=== PATIENT | male | born 1955 | race Caucasian/White ===

== ENCOUNTER 2023-04-09 10:45 | Outpatient (CLI) | payer MEDICARE, BC ==
[2023-04-09 18:03] LABS: BASOPHILS # (AUTO) 0.1 10^3/uL (0.0-0.1); BASOPHILS % (AUTO) 0.6 %; EOSINOPHILS # (AUTO) 0.2 10^3/uL (0.0-0.7); EOSINOPHILS % (AUTO) 1.8 %; HCT - HEMATOCRIT 44.7 % (42.0-52.0); LYMPHOCYTES # (AUTO) 1.8 10^3/uL (1.5-3.5); LYMPHOCYTES % (AUTO) 20.1 %; MEAN CORPUSCULAR HEMOGLOBIN 28.4 pg (27.0-31.0); MEAN CORPUSCULAR HGB CONC 31.3 g/dL (32.0-36.0); MEAN CORPUSCULAR VOLUME 90.7 fL (80.0-94.0); MEAN PLATELET VOLUME 10.1 fL (7.4-11.4); MONOCYTES # (AUTO) 0.9 10^3/uL (0.0-1.0); MONOCYTES % (AUTO) 9.9 %; NEUTROPHILS # (AUTO) 5.8 10^3/uL (1.5-6.6); NEUTROPHILS % (AUTO) 66.8 %; PLT - PLATELET COUNT 269 10^3/uL (130-450); RED BLOOD COUNT 4.93 10^6/uL (4.70-6.10); RED CELL DISTRIBUTION WIDTH 13.8 % (12.0-15.0); WHITE BLOOD COUNT 8.7 x10^3/uL (4.8-10.8)
[2023-04-09 18:31] LABS: BILIRUBIN,URINE NEGATIVE (NEGATIVE); GLUCOSE, URINE (UA) NEGATIVE (NEGATIVE); KETONES,URINE (UA) NEGATIVE (NEGATIVE); LEUKOCYTE ESTERASE, URINE NEGATIVE (NEGATIVE); NITRITE,URINE NEGATIVE (NEGATIVE); OCCULT BLOOD,URINE NEGATIVE (NEGATIVE); PH,URINE 6.5 PH (5.0-7.5); PROTEIN,URINE NEGATIVE (NEGATIVE); UROBILINOGEN,URINE 0.2 (NORMAL) E.U./dL (NORMAL)
[2023-04-09 18:32] LABS: ALBUMIN 4.7 g/dL (3.2-5.5); ALBUMIN/GLOBULIN RATIO 1.7 (1.0-2.2); BILIRUBIN,TOTAL 0.5 mg/dL (0.2-1.0); CALCIUM 9.6 mg/dL (8.5-10.3); CREATININE 0.9 mg/dL (0.6-1.3); POTASSIUM 4.2 mmol/L (3.5-4.5); TOTAL PROTEIN 7.5 g/dL (6.4-8.9)
[2023-04-09 18:43] LABS: THYROID STIMULATING HORMONE 4.8 uIU/mL (0.34-5.60)
[2023-04-09 19:04] LABS: CLARITY,URINE CLEAR (CLEAR)
[2023-04-09 19:05] LABS: BACTERIA,URINE None Seen /HPF (None Seen); RBC,URINE None Seen /HPF (0-5); SQUAMOUS EPITHELIAL CELL,UR NONE SEEN (<= Few); WBC,URINE 0-3 /HPF (0-3)
== END 2023-04-09 11:00 | disposition home or self-care (01) ==
LOC: LAB.N 10:45
PROVIDERS: ATTEND Family Medicine
DX: R60.9 Edema, unspecified (principal); R06.09 Other forms of dyspnea
CPT/HCPCS: 36415; 80053; 81001; 83880; 84443; 85025; 87086

== ENCOUNTER 2023-07-16 06:19 | Day surgery (SDC) | payer MEDICARE, OTHER ==
[2023-07-16] MEDS ORDERED: LACTATED RINGERS 1,000 ML IV ONE ×3 (06:31→07:52)
[2023-07-16 06:45] VITALS: O2SAT 98
[2023-07-16] MEDS ORDERED: PROPOFOL 500 MG/50 ML 500 MG/50 ML VIAL ONE (07:03)
[2023-07-16] MEDS ORDERED: MIDAZOLAM 2 MG/2 ML VIAL ONE (07:06)
--- NOTE | 2023-07-16 07:20 | ANESTHESIA ---
Pre-Anesthesia VS, & Labs - Diagnosis colonoscopy - Procedure colonoscopy Vital Signs: Temp Pulse Resp BP Pulse Ox O2 Flow Rate 36.5 C 85 19 157/92 H 98 07/16/23 06:40 07/16/23 06:40 07/16/23 06:40 07/16/23 06:40 07/16/23 06:40 Height: 6 ft 2 in Weight (kg): 118.6 kg Body Mass Index: 33.5 BMI Classification: Obese - NPO Other (0430 clear liquids) Home Medications and Allergies Home Medications: Ambulatory Orders Irbesartan [Avapro] 2 tab PO DAILY 07/16/23 Levothyroxine Sodium [Euthyrox] 1 tab PO DAILY 07/16/23 Rosuvastatin Calcium [Crestor] 10 mg PO DAILY 07/16/23 amLODIPine [Norvasc] 1 tab PO DAILY 07/16/23 Irbesartan [Avapro] 2 tab PO DAILY 07/16/23 Levothyroxine Sodium [Euthyrox] 1 tab PO DAILY 07/16/23 Rosuvastatin Calcium [Crestor] 10 mg PO DAILY 07/16/23 amLODIPine [Norvasc] 1 tab PO DAILY 07/16/23 Allergies/Adverse Reactions: Allergies Allergy/AdvReac Type Severity Reaction Status Date / Time No Known Drug Allergies Allergy Verified 07/13/23 12:30 Anes History & Medical History - Anesthetic History Anesthesia Complications: reports: No previous complications Family history of Anesthesia Complications: Denies Family history of Malignant Hyperthermia: Denies - Medical History Cardiovascular: reports: Hypertension, High cholesterol Pulmonary: reports: None Gastrointestinal: reports: Colon polyps Urinary: reports: None Musculoskeletal: reports: None Endocrine/Autoimmune: reports: Other Skin: reports: None Psychosocial: reports: No issues indicated - Surgical History General: reports: Colonoscopy Orthopedic: reports: Other Exam General: Alert, Oriented x3, Cooperative Dental: WNL Mouth Openin Fingerbreadth Neck Mobility: Normal Mallampati classification: II Thyromental Distance: 4-6 cm Respiratory: Lungs clear Cardiovascular: Regular rate Plan Anesthesia Type: General, Total IV Consent for Procedure(s) Verified and Reviewed: Yes Code Status: Attempt Resuscitation ASA classification: 2-Mild systemic disease Is this case an emergency?: No
[2023-07-16] MEDS ORDERED: LIDOCAINE-MPF 2% 5 ML VIAL ONE (07:36)
--- NOTE | 2023-07-16 08:07 | ANESTHESIA POST OP EVALUATION ---
Anesthesia Post Eval - Post Anesthesia Eval Vitals: Last Vital Signs Temp 36.3 C L 07/16/23 07:52 Pulse 79 07/16/23 07:52 Resp 16 07/16/23 07:52 BP 109/66 07/16/23 07:52 Pulse Ox 97 07/16/23 07:52 O2 Flow Rate CV Function Including HR & BP: Stable Pain Control: Satisfactory Nausea & Vomiting: Negative Mental Status: Baseline Respiratory Status: Airway Patent Hydration Status: Satisfactory Anesthesia Complications: None
[2023-07-16 08:11] VITALS: BP 119/82
== END 2023-07-16 06:20 | disposition home or self-care (01) ==
LOC: SDS 06:19
PROVIDERS: ATTEND Surgery
PROC: 0DBM8ZZ Excision of Descending Colon, Via Natural or Artificial Opening Endoscopic (ICD-10-PCS; 2023-07-16)
PROC: 0DBH8ZZ Excision of Cecum, Via Natural or Artificial Opening Endoscopic (ICD-10-PCS; 2023-07-16)
PROC: 0DBK8ZZ Excision of Ascending Colon, Via Natural or Artificial Opening Endoscopic (ICD-10-PCS; principal; 2023-07-16 07:30)
DX: Z12.11 Encounter for screening for malignant neoplasm of colon (principal); D12.0 Benign neoplasm of cecum; D12.2 Benign neoplasm of ascending colon; D12.4 Benign neoplasm of descending colon; E66.9 Obesity, unspecified; I10 Essential (primary) hypertension; Z68.33 Body mass index [BMI] 33.0-33.9, adult
CPT/HCPCS: 45380; J7120

== ENCOUNTER 2023-09-22 09:01 | Outpatient (CLI) | payer MEDICARE, OTHER ==
[~2023-09-22 09:01] MED LIST: GADOTERATE MEGLUMINE 10 MMOL/20 ML VIAL ONE; GADOTERATE MEGLUMINE 5 MMOL/10 ML VIAL ONE
[2023-09-22] MEDS ORDERED: GADOTERATE MEGLUMINE 10 MMOL/20 ML VIAL IVP ONE (10:03)
--- NOTE | 2023-09-24 13:23 | MRI Report ---
PROCEDURE: MRI brain with and without contrast INDICATIONS: FACIAL DROOP TECHNIQUE: Multiplanar multisequential MR images of the brain were obtained before and after intrave nous contrast administration. COMPARISON: None. FINDINGS: CSF spaces: Basal cisterns are patent. No extra-axial fluid collections. Ventricles are normal in size and shape. Brain: No midline shift. No intracranial bleeds or masses. No abnormal intracranial enhancement. The brainstem appears normal. Diffusion-weighted images demonstrate no acute infarct. Normal intrav ascular flow voids are present. Generalized atrophy and multifocal white matter chronic ischemic change. Skull and face: Calvarial marrow is normal in signal. Orbits appear normal. Sinuses: Sinuses and mastoids appear clear. IMPRESSION: Atrophy and chronic ischemic change without acute infarct, hemorrhage or mass lesion Reviewed by: Vito Fan MD on 09/24/2023 12:22 PM [facility] Approved by: Vito Fan MD on 09/24/2023 12:22 PM [facility] Station ID: [id number]
== END 2023-09-22 09:02 | disposition home or self-care (01) ==
LOC: DI 09:01
PROVIDERS: ATTEND Internal Medicine
DX: R29.810 Facial weakness (principal); G31.9 Degenerative disease of nervous system, unspecified; I67.82 Cerebral ischemia
CPT/HCPCS: 70553; A9575

== ENCOUNTER 2024-01-08 10:45 | Outpatient (CLI) | payer MEDICARE, OTHER ==
--- NOTE | 2024-01-08 10:50 | CARDIAC PROCEDURE NOTE ---
Stress Test Report Service Date: 01/08/24 Service Time: 11:00 Ordering Provider: Celine Girard MD Indication for Test: Risk stratification in patient with an elevated coronary risk profile, including PVCs, hyperlipidemia, hypertension and obesity. Significant Medical History: Yonis is referred for an exercise tolerance test today, for risk stratification in the setting of cardiac risk factors and PVCs, per the request of his [facility] [employer]. He has not been aware of palpitations, chest pressure/pain or a decrease in exertional tolerance and he remains active doing cardio as well as weight work at a local gym. He reports "normal" results of a prior stress test (many years ago) and an echocardiogram (in 2022). He has been referred for a sleep study, which he is contemplating, though his does not report heavy snoring or witnessed apneas. He has not had extended ambulatory rhythm monitoring performed as of yet. Cardiac Risk Factors: Positive for history of hypertension and hyperlidemia (both treated for ~20 yrs, with recent on-treatment lipids including TChol 149, LDLc 69, HDLc 50, TG 150), with no history of diabetes, tobacco smoking or significant family history of known CAD. Type of Stress Test: Exercise Treadmill Test (ETT) Procedure: -Exercise Treadmill Test- After signing informed consent, the patient performed treadmill exercise using a [place] protocol. The patient exercised for 5 minutes 49 seconds and achieved a peak heart rate of 160 (106 percent predicted maximum heart rate for age), and an estimated workload of 7.1 METS. The test was terminated due to fatigue/shortness of breath. Resting heart rate: 85 Peak heart rate: 160 Normal response to exercise. Resting BP: 153/86 Peak BP: 248/59 Hypertensive resting BP with hypertensive BP response to exercise. Room air oxygen saturation during exercise ranged between 94-96%. Rhythm during exercise: Sinus rhythm throughout, with PVCs and PVC couplets, increasing in frequency with exercise; for unknown reasons PVCs were not quantitated by the EKG system. Symptoms: No report of any chest pressure/pain/discomfort nor palpitations. EKG at rest showed normal sinus rhythm with mild first-degree AV block (PV=428 ms), low precordial lead voltages with early precordial R/S transition and rSR' pattern in V1 suggesting right ventricular conduction delay. EKG at peak stress showed no ischemia by EKG criteria. In Recovery HR and BP decreased towards resting levels, remaining elevated at 4:41 (HR 119, BP 155/72). No imaging was ordered with this stress test. Donald Tolbert MD, was present throughout this treadmill stress study and supervised it in its entirety. Summary: 1) Exercise tolerance modestly below average for age as evidenced by DALIA of 13%. 2) Abnormal resting EKG, but with ST/T pattern that was interpretable for ischemia. 3) Adequate level of exercise was achieved on this treadmill stress test. 4) Elevated resting BP with hypertensive response to exercise. 5) No ischemic changes by EKG criteria were seen at peak stress. 6) No imaging was ordered with this test. Conclusions and Recommendations: 1) The patient walked to a supraphysiologic heart rate with a hypertensive BP response, with no symptom or EKG evidence of inducible ischemia. He may have b een able to walk further but the study was discontinued at 106% PMHR due to concern for false positive ST response at higher heart rates. 2) He was encouraged to continue working on weight loss through continued dieting and aerobic exercise. 3) With his elevated resting BP and exaggerated exertional SBP elevation he might benefit from the addition of a potent thiazide-like diuretic, such as chlorthalidone (likely with KCl supplementation). 4) He was encouraged to follow through on recommended sleep evaluation, due to concern for occult SANDEE. 5) Given concern for PVCs since the beginning of his evaluation and observation of increasing frequency and complexity with exertion on today's ETT, it would be appropriate for him to undergo several days of ambulatory rhythm monitoring for better dysrhythmia characterization. This could be accomplished with placement of a "CAM patch" monitor at the [facility].
== END 2024-01-08 10:46 | disposition home or self-care (01) ==
LOC: DI 10:45
PROVIDERS: ATTEND Internal Medicine Interventional Cardiology
DX: I10 Essential (primary) hypertension (principal); I49.3 Ventricular premature depolarization; E66.9 Obesity, unspecified; E78.5 Hyperlipidemia, unspecified
CPT/HCPCS: 93017

== ENCOUNTER 2024-05-22 13:36 | Outpatient (CLI) | payer MEDICARE, OTHER ==
--- NOTE | 2024-05-22 21:36 | XRAY Report ---
PROCEDURE: Lumbar Spine 2-3V INDICATIONS: LOW BACK PAIN TECHNIQUE: 3 views of the lumbar spine were acquired. COMPARISON: None. FINDINGS: Surgical change: None. Bones: 5 [id number] vertebrae are present. 2 mm retrolisthesis of L2 on L3. , There is normal b ashley alignment. No vertebral body compression fractures. No suspicious bony lesions. Multilevel hyper trophy of the spinous processes which can be seen with Baastrup's disease. Multilevel facet arthropat hy, most conspicuous at L4-L5 and L5-S1. Soft tissues: Overlying bowel gas pattern is normal. No suspicious soft tissue calcifications. IMPRESSION: 1.Multilevel facet arthropathy and hypertrophy of the spinous processes, which can be seen with Baast rup's disease. 2.Otherwise, no acute radiographic abnormality of the lumbar spine. Reviewed by: Meño Judge MD on 05/22/2024 9:35 PM PDT Approved by: Meño Judge MD on 05/22/2024 9:35 PM PDT Station ID: [id number]
== END 2024-05-22 13:37 | disposition home or self-care (01) ==
LOC: DI 13:36
PROVIDERS: ATTEND Internal Medicine
DX: M47.816 Spondylosis without myelopathy or radiculopathy, lumbar region (principal)